=== PATIENT | female | born 1985 ===

== ENCOUNTER → 2016-05-03 | Outpatient (CLI) | payer MEDICAID ==
--- NOTE | 2016-05-03 11:22 | US ---
Complete Pelvic Sonography (Transabdominal and Endovaginal) Clinical History: 31-year-old female with intermittent pelvic and abdominal pain, and irregular menst rual periods. The patient's LMP was March 30, 2016. ICD-10 Diagnostic Code: R10.2. Technique: A curvilinear 5 MHz transducer was used to sonographically evaluate the pelvis, using a fu ll urinary bladder as a window. To better assess the uterine architecture and the adnexal structures, endovaginal pelvic sonography was also performed. Color Doppler and spectral Doppler are used. Comparison Study: None. Findings: Transabdominal Pelvic Sonography: The uterus is normal in size, shape, and position, measuring 6.7 x 3.7 x 3.1 cm. The endometrium is smoothly-contoured. There is no focal myometrial abnormality. The ri ght adnexal region is obscured by bowel gas. There is limited assessment of the left ovary. There is no free fluid. Endovaginal Pelvic Sonography: The endometrium is smoothly-contoured and mildly thickened, measuring 8.9 mm. There is no focal myometrial abnormality. The right ovary measures 4.5 x 1.6 x 3.4 cm, and co ntains some tiny follicles, as well as an involuting partially hemorrhagic follicular cyst which danie ures 1.9 x 1.7 x 2.1 cm. The left ovary measures 1.8 x 3.0 x 3.3 cm and contains some tiny follicles. Intraovarian vascular flow is documented. There is no free fluid in the cul-de-sac. Impression: 1. Smoothly contoured endometrium measuring 8.9 mm. There is no focal myometrial abnormality. 2. There is a partially involuting hemorrhagic follicular cyst in the right ovary measuring 2.1 cm. T here is no torsion or free fluid.
== END ==
LOC: FIMAGING 09:33
PROVIDERS: ATTEND Advanced Practice Midwife
DX: N83.01 Follicular cyst of right ovary (principal); N92.6 Irregular menstruation, unspecified